=== PATIENT | male | born 1950 | race American Indian/Alaskan Native ===

== ENCOUNTER 2017-03-07 21:30 | Emergency (ER) | payer MEDICARE, OTHER ==
--- NOTE | 2017-03-07 23:56 | XRay Report ---
FINAL REPORT EXAM: XR SHOULDER 2 LT HISTORY: LEFT SHOULDER PAIN COMPARISONS: None. FINDINGS: Two views left shoulder Left glenohumeral joint appears intact. Minimally displaced fractures extend through the surgical neck and greater tuberosity of the left humerus. Diffuse demineralization. No acute pulmonary finding or displaced rib fracture. IMPRESSION: Minimally displaced fractures extend through the greater tuberosity and surgical neck of the left humerus.
--- NOTE | 2017-03-08 00:06 | XRay Report ---
FINAL REPORT EXAM: XR FOOT 2V LT HISTORY: LEFT TOE PAIN COMPARISONS: None. FINDINGS: Portable nonweightbearing views of the left foot Intra-articular minimally displaced fracture extends through the long axis of the 1st distal phalanx to the subungual surface. Diffuse demineralization. No other fractures are seen. IMPRESSION: Minimally displaced intra-articular fracture of the 1st distal phalanx extends to the subungual surface of the bone and is at increased risk for development of osteomyelitis. Clinical and imaging follow-up are recommended.
[2017-03-08] MEDS ORDERED: NORCO 5/325 PO ONE (00:15)
--- NOTE | 2017-03-08 00:15 | Emergency Department Report ---
ED Fall HPI - General Chief Complaint: Fall Stated Complaint: FALL/L SIDE PAIN Time Seen by Provider: 03/08/17 00:02 Source: patient, family Mode of arrival: Wheelchair - History of Present Illness Initial Comments: 66-year-old male past medical history multiple CVAs hypertension hyperlipidemia presents with complaint of left shoulder pain status post fall out of bed. Patient is awake alert and oriented 3 states that he has pain in his left upper shoulder. As per patient's sister at bedside he rolled out of bed yesterday evening. This was not witnessed but family members came to his aid immediately after fall because it hurt and fell. Unclear if patient hit his head. Patient denies any head trauma or loss of consciousness but states he could not get up off the ground without assistance. Patient is able to walk although he has some left-sided residual upper and lower extremity weakness due to prior CVAs. Patient primarily complaining of pain in his left upper shoulder region and has difficulty ranging his left shoulder. Patient lives at home with his daughter. MD Complaint: fall Onset/Timin -: days(s) Fall From: out of bed Place Fall Occurred: home Loss of Consciousness: none Prolonged Down Time?: no Symptoms Prior to Fall: none Location: head Location - Extremities: Left: Shoulder (left shoulder pain) Severity: moderate Severity scale (0 -10): 6 Context: other (rolled out of bed) - Related Data Home Medications Medication Instructions Recorded Confirmed Last Taken Calcium Carbonate 650 mg PO 11/08/13 11/08/13 11/08/13 Citalopram Hydrobromide [Celexa] 40 mg PO DAILY 11/08/13 11/08/13 11/08/13 Clopidogrel Bisulfate [Plavix] 75 mg PO 11/08/13 11/08/13 11/08/13 Clopidogrel Bisulfate [Plavix] 75 mg PO QDAY 11/08/13 11/08/13 11/08/13 Cyclobenzaprine HCl [Flexeril] 10 mg PO 11/08/13 11/08/13 11/08/13 Lisinopril/Hydrochlorothiazide 1 tab PO QDAY 11/08/13 11/08/13 11/08/13 [Zestoretic 10-12.5 mg] Ranitidine HCl [Ranitidine 150mg 150 mg PO BID 11/08/13 11/08/13 11/08/13 Cap] Ranitidine HCl [Ranitidine 150mg 150 mg PO BID 11/08/13 11/08/13 11/08/13 Cap] Simvastatin [Zocor] 20 mg PO QHS 11/08/13 11/08/13 11/08/13 Zolpidem Tartrate [Zolpimist] 5 mg PO QHS PRN 11/08/13 11/08/13 11/08/13 Previous Rx's Medication Instructions Recorded Last Taken Type HYDROcodone/APAP 5-325 [[place] 1 each PO Q6HR PRN #20 tablet 03/08/17 Unknown Rx 5/325] Allergies Allergy/AdvReac Type Severity Reaction Status Date / Time No Known Allergies Allergy Unverified 11/08/13 17:13 ED Review of Systems ROS: Stated complaint: FALL/L SIDE PAIN Other details as noted in HPI Constitutional: denies: chills, fever Eyes: denies: eye pain, eye discharge, vision change ENT: denies: ear pain, throat pain Respiratory: denies: cough, shortness of breath, wheezing Cardiovascular: denies: chest pain, palpitations Endocrine: no symptoms reported Gastrointestinal: denies: abdominal pain, nausea, diarrhea Genitourinary: denies: urgency, dysuria Musculoskeletal: denies: back pain, joint swelling, arthralgia Skin: denies: rash, lesions Neurological: as per HPI (left upper and lower extremity residual weakness secondary to CVAs). denies: headache, weakness, paresthesias Psychiatric: denies: anxiety, depression Hematological/Lymphatic: denies: easy bleeding, easy bruising ED Past Medical Hx - Past Medical History Previous Medical History?: Yes Hx Hypertension: Yes Hx CVA: Yes (11 times) - Surgical History Past Surgical History?: No - Social History Smoking Status: Current Some Day Smoker Substance Use Type: None - Medications Home Medications: Home Medications Medication Instructions Recorded Confirmed Last Taken Type Calcium Carbonate 650 mg PO 11/08/13 11/08/13 11/08/13 History Citalopram Hydrobromide [Celexa] 40 mg PO DAILY 11/08/13 11/08/13 11/08/13 History Clopidogrel Bisulfate [Plavix] 75 mg PO 11/08/13 11/08/13 11/08/13 History Clopidogrel Bisulfate [Plavix] 75 mg PO QDAY 11/08/13 11/08/13 11/08/13 History Cyclobenzaprine HCl [Flexeril] 10 mg PO 11/08/13 11/08/13 11/08/13 History Lisinopril/Hydrochlorothiazide 1 tab PO QDAY 11/08/13 11/08/13 11/08/13 History [Zestoretic 10-12.5 mg] Ranitidine HCl [Ranitidine 150mg 150 mg PO BID 11/08/13 11/08/13 11/08/13 History Cap] Ranitidine HCl [Ranitidine 150mg 150 mg PO BID 11/08/13 11/08/13 11/08/13 History Cap] Simvastatin [Zocor] 20 mg PO QHS 11/08/13 11/08/13 11/08/13 History Zolpidem Tartrate [Zolpimist] 5 mg PO QHS PRN 11/08/13 11/08/13 11/08/13 History HYDROcodone/APAP 5-325 [[place] 1 each PO Q6HR PRN #20 tablet 03/08/17 Unknown Rx 5/325] ED Physical Exam - General Limitations: No Limitations General appearance: alert, in no apparent distress - Head Head exam: Present: atraumatic, normocephalic - Eye Eye exam: Present: normal appearance, PERRL, EOMI - ENT ENT exam: Present: mucous membranes moist - Neck Neck exam: Present: normal inspection, full ROM - Respiratory Respiratory exam: Present: normal lung sounds bilaterally. Absent: respiratory distress - Cardiovascular Cardiovascular Exam: Present: regular rate, normal rhythm. Absent: systolic murmur, diastolic murmur, rubs, gallop - GI/Abdominal GI/Abdominal exam: Present: soft, normal bowel sounds - Rectal Rectal exam: Present: deferred - Extremities Exam Extremities exam: Present: normal inspection - Expanded Upper Extremity Exam Left Shoulder Exam: Present: tenderness (pain and swelling left upper shoulder joint) Upper Arm exam: Present: tenderness (tenderness at top of the humerus below shoulder joint) Elbow exam: Present: normal inspection, full ROM Forearm Wrist exam: Present: normal inspection, full ROM Hand Wrist exam: Present: normal inspection, full ROM Neuro motor exam: Present: other (patient has difficulty ranging his left upper extremity secondary to acute injury and chronic neurological disease) - Back Exam Back exam: Present: normal inspection - Neurological Exam Neurological exam: Present: alert, oriented X3, abnormal gait (antalgic gait at baseline secondary to CVAs) - Psychiatric Psychiatric exam: Present: normal affect, normal mood - Skin Skin exam: Present: warm, dry, intact, normal color. Absent: rash ED Course Vital Signs 03/07/17 03/08/17 03/08/17 21:41 01:07 03:18 Temperature 99.0 F Pulse Rate 64 61 60 Respiratory 18 16 20 Rate Blood Pressure 109/68 Blood Pressure 192/98 165/93 [Right] O2 Sat by Pulse 97 96 98 Oximetry ED Medical Decision Making - Medical Decision Making A/P: Mechanical fall out of bed, left shoulder fracture, left toe fracture 1-shoulder immobilizer, follow-up with orthopedics 2-CT head shows no intracranial injury or hemorrhage. CT cs-pine negative for acute injury 3-I discussed with the patient and patient's sister importance of follow-up with orthopedics 4- RICE therapy for toe, ortho shoe, weaight bearing as tolerated, f/u with podiatry. Short course [facility]CO prn Critical care attestation.: If time is entered above; I have spent that time in minutes in the direct care of this critically ill patient, excluding procedure time. ED Disposition Clinical Impression: Shoulder fracture, left Qualifiers: Encounter type: initial encounter Fracture type: closed Qualified Code(s): S42.92XA - Fracture of left shoulder girdle, part unspecified, initial encounter for closed fracture Toe fracture, left Qualifiers: Encounter type: initial encounter Toe: great toe Fracture type: closed Phalanx : distal Fracture alignment: nondisplaced Qualified Code(s): S92.425A - Nondisplaced fracture of distal phalanx of left great toe, initial encounter for closed fracture Disposition: - TO HOME OR SELFCARE Is pt being admited?: No Does the pt Need Aspirin: No Condition: Stable Instructions: Arm Fracture in Adults (ED), Toe Fracture (ED), Fall Prevention for Older Adults (ED), RICE Therapy (ED) Prescriptions: HYDROcodone/APAP 5-325 [[place] 5/325] 1 each PO Q6HR PRN #20 tablet PRN Reason: Pain Referrals: MELANIE BAH MD [Staff Physician] - 3-5 Days NATALY DIAS DPM [Staff Physician] - 3-5 Days Forms: Accompanied Note Time of Disposition: 02:45
--- NOTE | 2017-03-08 02:29 | Cat Scan Report ---
FINAL REPORT PROCEDURE: CT HEAD/BRAIN WO CON TECHNIQUE: Computerized tomography of the head was performed without contrast material. HISTORY: s/p fall out of bed, pt fractured shoulder COMPARISON: No prior studies are available for comparison. FINDINGS: Skull and scalp: Normal. Paranasal sinuses: Normal. Ventricles and subarachnoid spaces: There is advanced central and cortical atrophy. There is ex vacuo dilatation of the right lateral ventricle due to multiple old right hemispheric infarcts.. Cerebrum: No evidence of hemorrhage, acute infarction or mass. There is multi focal encephalomalacia throughout the right hemisphere consistent with old or right middle cerebral artery territory infarct. There is chronic bilateral periventricular deep white matter ischemic gliosis. There are dystrophic calcifications in the right hemisphere related to old infarction. Cerebellum and brainstem: No evidence of hemorrhage, acute infarction or mass. Vasculature: There is calcified plaque in the vertebral arteries and the cavernous portions of the internal carotid arteries.. Comments: None. IMPRESSION: There is no acute abnormality. There are chronic changes as described in detail above.
--- NOTE | 2017-03-08 02:51 | Cat Scan Report ---
FINAL REPORT PROCEDURE: CT CERVICAL SPINE WO CON TECHNIQUE: Computerized tomography of the cervical spine was performed from the skull base to T1 without contrast material. HISTORY: s/p fall out of bed COMPARISON: No prior studies are available for comparison. FINDINGS: There are multilevel degenerative disc changes. There is no fracture or malalignment. There is osteophytic ridging with bilateral foraminal narrowing at C2-C3 through C4-C5. There is no facet dislocation. The skull base and foramen magnum are intact. 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 The prevertebral soft tissues are normal in thickness. IMPRESSION: There are chronic changes. There is no fracture or malalignment..
[2017-03-08 03:20] VITALS: BP 165/93
== END 2017-03-08 03:18 | disposition home or self-care (01) ==
LOC: ED 21:30
DX: S42.92XA Fracture of left shoulder girdle, part unspecified, initial encounter for closed fracture (principal); S92.425A Nondisplaced fracture of distal phalanx of left great toe, initial encounter for closed fracture; I10 Essential (primary) hypertension; I63.9 Cerebral infarction, unspecified; Z72.0 Tobacco use; W06.XXXA Fall from bed, initial encounter; Y93.89 Activity, other specified; Y99.8 Other external cause status; Y92.003 Bedroom of unspecified non-institutional (private) residence as the place of occurrence of the external cause
CPT/HCPCS: 70450; 72125